=== PATIENT | male | born 1960 | race Caucasian/White ===

== ENCOUNTER 2019-11-22 17:40 | Emergency (ER) | payer BC, SELFPAY ==
[2019-11-22 17:48] VITALS: BP 134/87; PULSE 72; RESP 14; TEMP 37.2; O2SAT 97
--- NOTE | 2019-11-22 17:55 | W.ED.GENAD ---
Discharge Plan Disposition Patient Disposition: HOME Condition: Improving Discharge Details Chief Complaint: Laceration Clinical Impression: Laceration of left upper extremity Primary Care Provider: Nisha,Local ED Provider: Geo Nunes Home Meds and New Rx's Prescriptions: No Action No Known Home Meds RF: 0 Discharge Instructions Instructions: Laceration (ED) Additional Instructions: Home to rest today. Leave the dressing on for 36 to 48 hours, then may remove, wash with gentle soap and water, pat dry and replace dressing. Sutures should be removed in 7 to 10 days time. Return to the ER if you develop a fever, redness, foul-smelling discharge from the wound or any other acute concerns. Medical Decision Making 59-year-old male here staying with his parents who lacerated his left distal volar forearm on the ulnar aspect with a jukebox coin collector. The wound was irrigated, explored in a bloodless field without evidence of foreign body. Patient's tetanus status was updated. The wound was repaired with 5 interrupted 4-0 nylon sutures with good wound apposition. Dressed by me at the bedside. Discussed home care as well as indications to seek reevaluation with the patient. He is stable and improved at this time. HPI General Mode of arrival: ambulatory. Date/Time Provider Initiated Documentation: 11/22/19 17:45. Limitations to Documentation: no limitations. Information obtained by: patient. History of Present Illness 59 year old M presents to the emergency department with the chief complaint of Left wrist laceration with a jukebox coin collector, described as mild, Quality is described as constant, and is localized to the left and upper extremity. Patient reports no radiation. and it has been constant. No relieving factors improve symptom(s), No exacerbating factors reported . Patient did receive the following treatments prior to arrival, other (Pressure applied) Related Data Home Medications Medication Instructions Recorded Confirmed Unknown [No Known Home Meds] 11/22/19 11/22/19 Allergies Allergy/AdvReac Type Severity Reaction Status Date / Time No Known Allergies Allergy Unverified 11/22/19 17:52 General Stated Complaint: Laceration MOSES: 4 Review of Systems Narrative: Tetanus unknown and out of date likely. No numbness or tingling, no weakness. Sick systems reviewed and otherwise negative [facility] Social History Smoking/Tobacco Use Status: Never Alcohol Intake: current Alcohol Intake frequency: 0-2 drinks per day Drug use: Never Substance use type: does not use Do you feel safe at home: Yes Exam Narrative Exam Narrative: GEN: awake, alert, oriented 3. Pleasant, well groomed, interactive. HEAD: Normocephalic, atraumatic ENT: Mucous membranes moist, External ear exam unremarkable EYES: PERRL, EOMI EXT: Full ROM, no edema, no rash. The left wrist on the volar surface, ulnar aspect has approximately 2 cm laceration through the dermis. No foreign body appreciated. 2+ radial pulse bilaterally, cap refill less than 2 seconds, sensation intact throughout and motor within normal limits. Neuro: Grossly normal neurologic exam, conversant, interactive. Psych: Speech fluent, thoughts congruent, affect normal Course Vital Signs Vital signs: Vital Signs Temperature 37.2 C 11/22/19 17:48 Pulse 72 11/22/19 17:48 Respiratory Rate 14 11/22/19 17:48 Blood Pressure 134/87 11/22/19 17:48 Pulse Oximetry 97 11/22/19 17:48 Temperature 37.2 C 11/22/19 17:48 Temperature Source Skin 11/22/19 17:48 Pulse 72 11/22/19 17:48 Respiratory Rate 14 11/22/19 17:48 Respiratory Effort Non-Labored 11/22/19 17:52 Blood Pressure 134/87 11/22/19 17:48 Blood Pressure Position Sitting 11/22/19 17:48 Pulse Oximetry 97 11/22/19 17:48 Oxygen Delivery Method Room Air 11/22/19 17:48 Oxygen Flow Rate 0 11/22/19 17:48 Pain Level 1 11/22/19 17:48 Procedures Laceration Laceration 1: Site: upper extremity Side (If applicable): left Size (cm): 2 Description: linear Depth: simple, single layer Local Anesthetic: Lidocaine 1% Amount of anesthesia used (mL): 2 Pre-repair: wound explored and irrigated extensively Skin layer closed with: nylon Size (cm): 3-0 Number of sutures: 5 Technique: simple, interrupted
[2019-11-22] MEDS: Tetanus & Diphtheria Tox,ADULT 0.5 ML VIAL IM (18:24)
== END 2019-11-22 18:29 | disposition home or self-care (01) ==
LOC: ER 18:44
PROVIDERS: Emergency Provider Emergency Medicine
DX: S61.512A Laceration without foreign body of left wrist, initial encounter (principal); W26.8XXA Contact with other sharp object(s), not elsewhere classified, initial encounter
CPT/HCPCS: 12001; 90471